=== PATIENT | male | born 1965 | race Caucasian/White ===

== ENCOUNTER → 2016-07-19 | Outpatient (CLI) | payer MEDICAID ==
[~2016-07-19] MED LIST: HABITROL21 MG/24 H TD; MECLIZINE 25MG25 MG PO; ZITHROMAX Z PA250 MG PO
== END ==
LOC: RT 07-12 08:00
DX: R07.9 Chest pain, unspecified (principal)

== ENCOUNTER 2016-08-24 08:48 | Day surgery (SDC) | payer MEDICAID ==
--- NOTE | 2016-08-24 09:50 | Operative Note ---
Endoscopy Report Date: 08/24/16 Preoperative diagnosis: Screening colonoscopy Procedure Type of procedure: Total colonoscopy to terminal ileum with polypectomy of cecal polyp Indications: 51-year-old white male. Sent for initial screening colonoscopy. Asymptomatic. No family history. Consent was obtained the patient was taken to same-day surgery endoscopy procedure room. He was positioned in a lateral decubitus position. Adequate intravenous sedation was achieved. Variable stiffness Olympus colonoscope was inserted via the anus. It was advanced to the cecum without difficulty. Preparation was good. Ileocecal valve and appendiceal orifice were clearly identified. Colonoscope was advanced into the terminal ileum which appeared grossly normal. Within the cecum in the periappendiceal location there was a diminutive possible early polyp removed with cold biopsy forceps. Colonoscope was withdrawn through the colon with careful surveillance. He had mild to moderate diverticulosis. Within the rectum retroflexion was performed which revealed no evidence of any pathologic internal hemorrhoids. Colonoscope was withdrawn. Findings 1. Polyp 2. Diverticulosis Follow-Up Follow-Up: Likely plan for follow-up colonoscopy in 5 years. at 0904
[2016-08-24 12:36] VITALS: BP 125/77
== END 2016-08-24 10:55 | disposition home or self-care (01) ==
LOC: SDC 08:48
PROVIDERS: Surgery
PROC: 0DBH8ZX Excision of Cecum, Via Natural or Artificial Opening Endoscopic, Diagnostic (ICD-10-PCS; principal; 2016-08-24 09:30)
DX: Z12.11 Encounter for screening for malignant neoplasm of colon (principal); K57.90 Diverticulosis of intestine, part unspecified, without perforation or abscess without bleeding; D12.0 Benign neoplasm of cecum